=== PATIENT | male | born 1945 | race Two or more races ===

== ENCOUNTER 2020-02-29 15:52 | Inpatient (IN) | payer OTHER ==
[~2020-02-29] VITALS: Ht 175.3 cm; Wt 75.7 kg
[2020-02-29] MEDS ORDERED: TOPROL XL50 M1 (16:24)
== END 2020-03-03 15:38 | disposition expired | DRG 177 ==
LOC: ER 15:52 → MEDJ 21:08
PROVIDERS: ADMIT Internal Medicine; ATTEND Internal Medicine
PROC: 4A033R1 Measurement of Arterial Saturation, Peripheral, Percutaneous Approach (ICD-10-PCS; principal; 2020-03-01)
PROC: 4A12X4Z Monitoring of Cardiac Electrical Activity, External Approach (ICD-10-PCS; 2020-03-01)
PROC: 3E0F7SF Introduction of Other Gas into Respiratory Tract, Via Natural or Artificial Opening (ICD-10-PCS; 2020-03-01)
PROC: CB2YYZZ Tomographic (Tomo) Nuclear Medicine Imaging of Respiratory System using Other Radionuclide (ICD-10-PCS; 2020-03-01)
PROC: BW40ZZZ Ultrasonography of Abdomen (ICD-10-PCS; 2020-03-03)
DX: U07.1 COVID-19 (principal); J12.89 Other viral pneumonia; K76.7 Hepatorenal syndrome; N17.8 Other acute kidney failure; E87.2 Acidosis; K70.31 Alcoholic cirrhosis of liver with ascites; I10 Essential (primary) hypertension; D69.49 Other primary thrombocytopenia; Z66 Do not resuscitate; Z53.29 Procedure and treatment not carried out because of patient's decision for other reasons; I46.8 Cardiac arrest due to other underlying condition; F10.21 Alcohol dependence, in remission